=== PATIENT | female | born 1950 | race Caucasian/White ===

== ENCOUNTER → 2016-12-22 | Outpatient (CLI) | payer MEDICARE, BC ==
--- NOTE | 2016-12-24 10:08 | MM ---
Reason for exam: screening (asymptomatic). Last mammogram was performed 2 years and 4 months ago. History: Patient is postmenopausal and is nulliparous. Family history of breast cancer in paternal aunt. Benign cyst aspiration of the left breast, 2001. Took estrogen for 1 year 6 months. Took progesterone for 1 year 6 months. Physical Findings: A clinical breast exam by your physician is recommended on an annual basis and results should be correlated with mammographic findings. MG 3D Screening Mammo W/Cad Bilateral CC and MLO view(s) were taken. Prior study comparison: August 17, 2014, bilateral MG screening mammo w CAD. August 09, 2012, bilateral digital screening mammo w/CAD. April 07, 2011, bilateral digital screening mammo w/CAD. The breast tissue is heterogeneously dense. This may lower the sensitivity of mammography. No significant changes when compared with prior studies. ASSESSMENT: Negative, BI-RAD 1 RECOMMENDATION: Routine screening mammogram of both breasts in 1 year.
== END | disposition home or self-care (01) ==
LOC: RADMAMWWP 09:06
PROVIDERS: ATTEND Family Medicine
DX: Z12.31 Encounter for screening mammogram for malignant neoplasm of breast (principal)
CPT/HCPCS: 77063; G0202

== ENCOUNTER → 2017-01-20 | Outpatient (CLI) | payer MEDICARE, BC ==
--- NOTE | 2017-01-20 07:55 | US ---
EXAMINATION TYPE: US thyroid st tissue head/neck DATE OF EXAM: 01/20/2017 COMPARISON: NONE CLINICAL HISTORY: E04.1 Nontoxic single thyroid nodule. Pt states hypothyroid, on meds x 30+ yrs, pos sible nodule felt on left GLAND SIZE: Right Lobe: 2.4 x 0.9 x 1.0 cm Overall Parenchyma: heterogenous Left Lobe: 2.9 x 0.9 x 1.0 cm Overall Parenchyma: heterogeneous Isthmus Thickness: 0.2 cm Bilateral neck scanned, no evidence of lymphadenopathy. No evidence of nodules bilaterally with small , heterogeneous gland bilaterally IMPRESSION: Small heterogenous thyroid gland without discrete measurable nodule.
== END | disposition home or self-care (01) ==
LOC: RADUSWWP 07:27
PROVIDERS: ATTEND Family Medicine
DX: E07.89 Other specified disorders of thyroid (principal)
CPT/HCPCS: 76536

== ENCOUNTER → 2017-11-23 | Outpatient (CLI) | payer MEDICARE, BC ==
--- NOTE | 2017-11-23 15:56 | US ---
EXAMINATION TYPE: US transvaginal DATE OF EXAM: 11/23/2017 COMPARISON: NONE CLINICAL HISTORY: N95.0 Menorrhagia. Spotting, left pelvic pain TECHNIQUE: Transvaginal (TV). Date of LMP: unknown EXAM MEASUREMENTS: Uterus: 4.5 x 2.2 x 2.6 cm Endometrial Stripe: 0.2 cm Right Ovary: unable to visualize Left Ovary: 1.6 x 1.0 x 1.2 cm 1. Uterus: Anteverted Nabothian cyst = 0.9cm 2. Endometrium: appears wnl 3. Right Ovary: Obscured by overlying bowel gas 4. Left Ovary: limited evaluation due to overlying bowel content, possible anechoic area = 0.7 x 0.8 x 0.7cm 5. Bilateral Adnexa: wnl 6. Posterior cul-de-sac: wnl IMPRESSION: 1. No evidence of endometrial thickening. Endometrial atrophy is the endometrium measures 2 mm. Direc t visualization remains recommended for post menopausal bleeding. 2. 7 mm left ovarian follicle. For follicular changes/cysts of this size in a postmenopausal female a nnual surveillances recommended.
== END | disposition home or self-care (01) ==
LOC: RADUSWWP 15:00
PROVIDERS: ATTEND Obstetrics & Gynecology
DX: N85.8 Other specified noninflammatory disorders of uterus (principal)
CPT/HCPCS: 76830

== ENCOUNTER 2018-05-13 13:23 | Day surgery (SDC) | payer MEDICARE, BC ==
[2018-05-10 14:52] VITALS: BMI 28.0
[~2018-05-13 13:23] MED LIST: LACTATED RINGERS 1,000 ML IV SCH
[2018-05-13] MEDS ORDERED: LIDOCAINE 1% 20 ML VIAL (10MG/ML) FOR IV START INTRADERMA ONE (13:38)
[2018-05-13 13:45] VITALS: RESP 16; TEMP 98.5
[2018-05-13] MEDS ORDERED: LACTATED RINGERS 1,000 ML IV ONE (13:49)
[2018-05-13] MEDS ORDERED: PROPOFOL 10 MG/ML 20 ML VIAL IV ONE (13:54)
--- NOTE | 2018-05-13 14:01 | P.GSHP ---
History of Present Illness H&P Date: 05/13/18 Chief Complaint: colon cancer screening Patient today for colonoscopy. No bowel related complaints. She was having some abdominal pain recently. CAT scan showed some thickening of the transverse colon. Last colonoscopy 11 years ago. That study was normal. Denies family history. Past Medical History Past Medical History: Fibromyalgia, Hypertension, Osteoarthritis (OA), Thyroid Disorder Additional Past Medical History / Comment(s): migraines, "white coat high blood pressure", pain in pelvic area and bloating in stomach area, History of Any Multi-Drug Resistant Organisms: None Reported Past Surgical History: Orthopedic Surgery Additional Past Surgical History / Comment(s): petalla tendon transfer nolan legs , mortons neuroma rt foot, exploratory abdominal surgery Past Anesthesia/Blood Transfusion Reactions: Motion Sickness, Postoperative Nausea & Vomiting (PONV) Additional Past Anesthesia/Blood Transfusion Reaction / Comment(s): hard time waking up Smoking Status: Never smoker - Past Family History Brother(s) Family Medical History: Cancer Medications and Allergies Home Medications Medication Instructions Recorded Confirmed Type Calcium, Mg D3 1 tab PO DAILY 05/10/18 05/13/18 History Joint Health 2 tab PO DAILY 05/10/18 05/13/18 History Levothyroxine Sodium [Synthroid] 100 mcg PO DAILY 05/10/18 05/13/18 History Multivitamins, Thera [Multivitamin 1 tab PO DAILY 05/10/18 05/13/18 History (formulary)] [place]-3 Fatty Acids/Fish Oil [Fish 1 each PO DAILY 05/10/18 05/13/18 History Oil 1,000 mg Softgel] Turmeric Root Extract [Turmeric] 500 mg PO DAILY 05/10/18 05/13/18 History Vision Shield 2 tab PO DAILY 05/10/18 05/13/18 History Allergies Allergy/AdvReac Type Severity Reaction Status Date / Time Sulfa (Sulfonamide Allergy Rash/Hives, Verified 05/13/18 13:32 Antibiotics) throat closed, couldn't breath Surgical - Exam Vital Signs Temp Pulse Resp BP Pulse Ox 98.5 F 96 16 144/81 96 05/13/18 13:38 05/13/18 13:38 05/13/18 13:38 05/13/18 13:38 05/13/18 13:38 Physical exam: General: Well-developed, well-nourished HEENT: Normocephalic, sclerae nonicteric Abdomen: Nontender, nondistended Extremities: No edema Neuro: Alert and oriented Assessment and Plan (1) Colon cancer screening Narrative/Plan: Will proceed with colonoscopy Current Visit: Yes Status: Acute Code(s): Z12.11 - ENCOUNTER FOR SCREENING FOR MALIGNANT NEOPLASM OF COLON SNOMED Code(s): 081018591
--- NOTE | 2018-05-13 14:18 | P.PCN ---
Date of Procedure: 05/13/18 Procedure(s) Performed: PREOPERATIVE DIAGNOSIS: Colon cancer screening POSTOPERATIVE DIAGNOSIS: Sigmoid colon polyp, diverticulosis PROCEDURE: Colonoscopy with snare polypectomy ANESTHESIA: MAC SURGEON: Chapo Mg M.D. SPECIMENS: Sigmoid polyp ENDOSCOPIC PROCEDURE: The patient was placed on the endoscopy table in the left decubitus position. The Olympus colonoscope was inserted into the anus and passed under direct visualization to the region of the cecum. I could not intubate the base of the cecum. For that reason the appendiceal orifice was not visualized. This was despite multiple attempts and various methods. The scope was withdrawn from that point inspecting all surfaces carefully. There were no neoplastic inflammatory or polypoid lesions throughout the cecum, ascending, transverse, and descending colon. In the sigmoid colon a small polyp was identified and removed using the snare with cautery technique. There was mild left-sided diverticulosis. The remaining sigmoid and rectum appeared normal. Digital rectal examination was normal. The patient was taken to the recovery room in stable condition per anesthesia guidelines. RECOMMENDATIONS: Await biopsy results. Follow-up colonoscopy based on pathology findings.
[2018-05-13 14:30] VITALS: PULSE 87
[2018-05-13 14:49] VITALS: BP 163/76
== END 2018-05-13 15:00 | disposition home or self-care (01) ==
LOC: ORWHC2ENDO 13:23
PROVIDERS: ATTEND Surgery
DX: Z12.11 Encounter for screening for malignant neoplasm of colon (principal); D12.5 Benign neoplasm of sigmoid colon; K57.30 Diverticulosis of large intestine without perforation or abscess without bleeding; I10 Essential (primary) hypertension; M79.7 Fibromyalgia; M19.90 Unspecified osteoarthritis, unspecified site; E07.9 Disorder of thyroid, unspecified; Z79.890 Hormone replacement therapy; Z88.2 Allergy status to sulfonamides; G43.909 Migraine, unspecified, not intractable, without status migrainosus
CPT/HCPCS: 88305; 45385; J2704

== ENCOUNTER → 2018-07-14 | Outpatient (CLI) | payer MEDICARE, BC ==
[2018-07-14 06:44] LABS: Blood Urea Nitrogen 21 mg/dL (7-17)
--- NOTE | 2018-07-14 09:29 | CT ---
EXAMINATION TYPE: CT iac w con DATE OF EXAM: 07/14/2018 COMPARISON: None HISTORY: H92.02 Left Otalgia Automated exposure control for dose reduction was used. CONTRAST: CT scan of the IACs is performed with IV Contrast, patient injected with 100 mL of Isovue 300. FINDINGS: The external auditory canals are patent bilaterally. Mastoid air cells show no evidence of abnormal opacification bilaterally. The middle ear ossicles are symmetric and unremarkable. Small a mount of soft tissue measuring 2.1 mm left sided epi tympanum may reflect small cholesteatoma formati on. No evidence for osseous erosion. No right-sided soft tissue identified. The scutum is preserved b ilaterally. The cochlea and the semicircular canals are symmetric and unremarkable. Vestibular aque duct and internal carotid canal appear unremarkable. Temporomandibular joints are maintained bilater ally. IMPRESSION: 1.Small amount of soft tissue measuring 2.1 mm left sided epi tympanum may reflect small cholesteatom a formation. No evidence for osseous erosion.
== END | disposition home or self-care (01) ==
LOC: RADCTMAIN 06:13
PROVIDERS: ATTEND Otolaryngology
DX: H93.8X2 Other specified disorders of left ear (principal)
CPT/HCPCS: 82565; 84520; 70481; 36415; Q9967

== ENCOUNTER → 2018-10-04 | Outpatient (CLI) | payer MEDICARE, BC ==
--- NOTE | 2018-10-04 15:32 | US ---
EXAMINATION TYPE: US carotid duplex BILAT DATE OF EXAM: 10/04/2018 COMPARISON: NONE CLINICAL HISTORY: R55 Syncope and Collapse,I67.9 Cerebrovascular dz. EXAM MEASUREMENTS: RIGHT: Peak Systolic Velocity (PSV) cm/sec ----- Right CCA: 93.0 ----- Right ICA: 89.9 ----- Right ECA: 88.9 ICA/CCA ratio: 1.0 RIGHT: End Diastole cm/sec ----- Right CCA: 28.5 ----- Right ICA: 34.8 ----- Right ECA: 15.0 LEFT: Peak Systolic Velocity (PSV) cm/sec ----- Left CCA: 89.9 ----- Left ICA: 76.5 ----- Left ECA: 127.1 ICA/CCA ratio: 0.9 LEFT: End Diastole cm/sec ----- Left CCA: 21.6 ----- Left ICA: 27.6 ----- Left ECA: 18.8 VERTEBRALS (direction of flow): Right Vertebral: Antegrade Left Vertebral: Antegrade Rhythm: Normal No significant stenosis seen, mild to moderate bilateral plaque. IMPRESSION: Mild to moderate degree of grayscale atheromatous plaquing with no sonographically evide nt hemodynamically significant stenosis within either visualized carotid arterial system. Criteria for Assigning % of Stenosis / Diameter reduction (Estimation based on the indirect measurements of the internal carotid artery velocities (ICA PSV). 1. Normal (no stenosis)=ICA PSV < 125 cm/s: ratio < 2.0: ICA EDV<40 cm/s. 2. Less than 50% stenosis=ICA PSV < 125 cm/s: ratio < 2.0: ICA EDV<40 cm/s. 3. 50 to 69% stenosis=ICA PSV of 125 to 230 cm/s: ration 2.0 ? 4.0: ICA EDV 40-100 cm/s. 4. Greater than 70% stenosis to near occlusion= ICA PSV > 230 cm/s: ratio > 4.0: ICA EDV > 100 cm/s. 5. Near occlusion= ICA PSV velocities may be low or undetectable: variable ratio and ICA EDV. 6. Total occlusion=unable to detect flow.
== END | disposition home or self-care (01) ==
LOC: RADUSWWP 14:40
PROVIDERS: ATTEND Family Medicine
DX: I65.23 Occlusion and stenosis of bilateral carotid arteries (principal); I67.9 Cerebrovascular disease, unspecified
CPT/HCPCS: 93880

== ENCOUNTER → 2020-04-19 | Outpatient (CLI) | payer MEDICARE ==
--- NOTE | 2020-04-23 11:56 | MM ---
Reason for exam: screening (asymptomatic). Last mammogram was performed 3 years and 4 months ago. History: Patient is postmenopausal and is nulliparous. Family history of breast cancer in paternal aunt. Benign cyst aspiration of the left breast, 2001. Took estrogen for 1 year 6 months. Took progesterone for 1 year 6 months. Physical Findings: A clinical breast exam by your physician is recommended on an annual basis and results should be correlated with mammographic findings. MG 3D Screening Mammo W/Cad Bilateral CC and MLO view(s) were taken. Prior study comparison: December 22, 2016, bilateral MG 3d screening mammo w/cad. August 17, 2014, bilateral MG screening mammo w CAD. The breast tissue is heterogeneously dense. This may lower the sensitivity of mammography. No significant changes when compared with prior studies. ASSESSMENT: Benign, BI-RAD 2 RECOMMENDATION: Routine screening mammogram of both breasts in 1 year.
== END | disposition home or self-care (01) ==
LOC: RADMAMWWP 08:12
PROVIDERS: ATTEND Family Medicine
DX: Z12.31 Encounter for screening mammogram for malignant neoplasm of breast (principal)
CPT/HCPCS: 77063; 77067

== ENCOUNTER → 2020-05-10 | Outpatient (CLI) | payer MEDICARE ==
--- NOTE | 2020-05-10 10:27 | USB ---
Reason for exam: additional evaluation requested from prior study. History: Patient is postmenopausal and is nulliparous. Family history of breast cancer in paternal aunt. Benign cyst aspiration of the left breast, 2001. Took estrogen for 1 year 6 months. Took progesterone for 1 year 6 months. US Breast RT Right complete breast ultrasound includes all four quadrants, the retroareolar region and axilla. Finding demonstrates ductal ectasia at 4 o'clock and a 1.1 x 1.5 x 0.9cm oval lymph node at the axilla. These results were verbally communicated with the patient and result sheet given to the patient on 05/10/20. ASSESSMENT: Probably benign, BI-RAD 3 RECOMMENDATION: Ultrasound of the right breast in 6 months. Manage on a clinical basis with regard to pain.
== END | disposition home or self-care (01) ==
LOC: RADUSWWP 09:20
PROVIDERS: ATTEND Family Medicine
DX: N64.4 Mastodynia (principal); M79.621 Pain in right upper arm

== ENCOUNTER → 2020-10-23 | Outpatient (CLI) | payer MEDICARE ==
--- NOTE | 2020-10-23 09:59 | USB ---
Reason for exam: follow-up at short interval from prior study. History: Patient is postmenopausal and is nulliparous. Family history of breast cancer in paternal aunt. Benign cyst aspiration of the left breast, 2001. Took estrogen for 1 year 6 months. Took progesterone for 1 year 6 months. Physical Findings: Nurse did not find any significant physical abnormalities on exam. US Breast RT Right complete breast ultrasound includes all four quadrants, the retroareolar region and axilla. Finding demonstrates no cystic or solid lesion seen. No sonographic finding. These results were verbally communicated with the patient and result sheet given to the patient on 10/23/20. ASSESSMENT: Benign, BI-RAD 2 RECOMMENDATION: Return to routine screening mammogram schedule for both breasts. Back on schedule.
== END | disposition home or self-care (01) ==
LOC: RADUSWWP 08:16
PROVIDERS: ATTEND Family Medicine
DX: R92.8 Other abnormal and inconclusive findings on diagnostic imaging of breast (principal)

== ENCOUNTER → 2021-06-05 | Outpatient (CLI) | payer MEDICARE ==
--- NOTE | 2021-06-09 10:38 | MM ---
Reason for exam: screening (asymptomatic). Last mammogram was performed 1 year and 2 months ago. History: Patient is postmenopausal and is nulliparous. Family history of breast cancer in paternal aunt at age 70. Benign cyst aspiration of the left breast, 2001. Took estrogen for 1 year 6 months. Took progesterone for 1 year 6 months. Physical Findings: A clinical breast exam by your physician is recommended on an annual basis and results should be correlated with mammographic findings. MG 3D Screening Mammo W/Cad Bilateral CC and MLO view(s) were taken. Prior study comparison: April 19, 2020, bilateral MG 3d screening mammo w/cad. December 22, 2016, bilateral MG 3d screening mammo w/cad. The breast tissue is heterogeneously dense. This may lower the sensitivity of mammography. A few regional grouped calcifications left upper outer quadrant are new, further evaluation recommended. ASSESSMENT: Incomplete: need additional imaging evaluation, BI-RAD 0 RECOMMENDATION: Special view mammogram of the left breast. (magnification) [facility] will attempt to contact patient to return for supplemental views.
== END | disposition home or self-care (01) ==
LOC: RADMAMWWP 09:05
PROVIDERS: ATTEND Family Medicine
DX: Z12.31 Encounter for screening mammogram for malignant neoplasm of breast (principal); Z78.0 Asymptomatic menopausal state; Z80.3 Family history of malignant neoplasm of breast
CPT/HCPCS: 77063; 77067

== ENCOUNTER → 2021-06-09 | Outpatient (CLI) | payer MEDICARE ==
--- NOTE | 2021-06-09 15:21 | BD ---
EXAMINATION TYPE: Axial Bone Density DATE OF EXAM: 06/09/2021 COMPARISON: 09.16.2012 CLINICAL HISTORY: 70 YR OLD FEMALE.....ICD-10 CODE: M85.80 BD DISORDER Height: 65.2 Weight: 181 FRAX RISK QUESTIONS: Secondary Osteoporosis: YES 3. Menopause before 45: AT 46 RISK FACTORS HISTORY OF: History of Wrist Fracture: RT WRIST AN ADULT, Family History of Osteoporosis: UNKNOWN Diet low in dairy products/other sources of calcium: YES Postmenopausal woman: YES, AT AGE 46 YRS OLD Take estrogen and/or progesterone medications: YES, FOR ABOUT 5 YRS , NONE NOW Hyperparathyroidism: NO Adrenal Insufficiency: NO MEDICATIONS: Thyroid Medications: YES, SYNTHROID, FOR ABOUT 40 YRS Osteoporosis Medications: FOSAMAX, ACTONEL, EVISTA....ALL IN THE PAST, NONE NOW Additional Medications: VIT D, STOPPED CALCIUM ABOUT 6 MOS AGO, OSTEOARTHRITIS Additional History: OSTEOARTHRITIS, HYPERCALCEMIA, EXAM MEASUREMENTS: Bone mineral densitometry was performed using the Vuze System. Bone mineral density as measured about the Lumbar spine is: ----- L1-L4(G/cm2): 0.954 T Score Values are as follows: ----- L1: -1.5 ----- L2: -2.3 ----- L3: -2.1 ----- L4: -1.7 ----- L1-L4: -1.9 Bone mineral density has: Decreased -1.6% since study of: 04.05.2015 Bone mineral density about the R hip (g/cm2): 0.756 Bone mineral density about the L hip (g/cm2): 0.772 T Score values are as follows: -----R Neck: -1.7 -----L Neck: -1.2 -----R Total: -2.0 -----L Total: -1.9 Bone mineral density has: Decreased -6.6% since study of: 04.05.2015 FRAX%s: THERE IS A 16.2% CHANCE FOR A MAJOR OSTEOPOROTIC FX AND A 2.5% FOR HIP.....PROBABILITY FO R FX IN 10 YRS TIME IMPRESSION: Osteopenia (T Score between -2.5 and -1). There is slightly increased risk of fracture and the patient may be considered for treatment. Re-Screen 2-5 years. NOTE: T-SCORE=SD OF THE YOUNG ADULT MEAN.
== END | disposition home or self-care (01) ==
LOC: RADBDWWP 07:10
PROVIDERS: ATTEND Family Medicine
DX: M85.80 Other specified disorders of bone density and structure, unspecified site (principal)
CPT/HCPCS: 77080

== ENCOUNTER → 2022-06-09 | Outpatient (CLI) | payer MEDICARE ==
--- NOTE | 2022-06-10 12:17 | MM ---
Reason for Exam: Screening (asymptomatic). Last screening mammogram was performed 12 month(s) ago. Patient History: Menarche at age 12. Patient has no children. Postmenopausal. Estrogen for 3 years, 6 months. Progesterone for 3 years, 6 months. 2001, Benign Cyst Aspiration on the left side. Paternal aunt had breast cancer, age 70. Risk Values: Flaquita 5 year model risk: 2.1%. NCI Lifetime model risk: 6.1%. Prior Study Comparison: 04/19/2020 Bilateral Screening Mammogram, [facility]. 06/05/2021 Bilateral Screening Mammogram, [facility]. 06/10/2021 Left Diagnostic Mammogram, [facility]. Tissue Density: The breast tissue is heterogeneously dense. This may lower the sensitivity of mammography. Findings: Analyzed By CAD. There is no suspicious group of microcalcifications or new suspicious mass in either breast. Overall Assessment: Negative, BI-RAD 1 Management: Screening Mammogram of both breasts in 1 year. A clinical breast exam by your physician is recommended on an annual basis and results should be correlated with mammographic findings. [facility] will attempt to contact patient to return for supplemental views and ultrasound if indicated. Electronically signed and approved by: Milan Corona DO
== END | disposition home or self-care (01) ==
LOC: RADMAMWWP 09:19
PROVIDERS: ATTEND Family Medicine
DX: Z12.31 Encounter for screening mammogram for malignant neoplasm of breast (principal); Z78.0 Asymptomatic menopausal state; Z80.3 Family history of malignant neoplasm of breast
CPT/HCPCS: 77063; 77067

== ENCOUNTER → 2023-04-30 | Outpatient (CLI) | payer MEDICARE ==
--- NOTE | 2023-04-30 11:59 | PE ---
EXAMINATION TYPE: PET CT fusion skull to thigh DATE OF EXAM: 04/30/2023 COMPARISON: CT chest 02/04/2023 Prior PET/CT: None at this location HISTORY: Solitary pulmonary nodule TECHNIQUE: Following the intravenous administration of 11.0 mCi of F-18 FDG, whole body images are p erformed from the skull base to the midthigh. Images are reviewed on the computer in the coronal, ax ial, and sagittal planes. Reconstructed rotating images are created on independent workstation and r eviewed on the computer. A localization and attenuation correction CT is performed in conjunction w ith the PET scan. DLP: 651.90 mGycm SCAN: Initial Blood glucose: 126 mg/dL Average Mediastinum SUV: 1.9 Average Liver SUV: 2.71 FINDINGS: NECK: No abnormal uptake THORAX: No abnormal uptake ABDOMEN: No abnormal uptake PELVIS: No abnormal uptake OSSEOUS STRUCTURES: No abnormal uptake LOCALIZATION CT: Some groundglass opacity may be in the anterior left upper lung field. Short-term fo llow-up CT in 6 months is recommended. Image 69. Calcifications in the posterior right upper lung field. Image 87. No significant radiotracer uptake. No suspicious uptake within the lung pop are mediastinal. COMPARISON: No significant interval change evident. IMPRESSION: 1. No suspicious radiotracer accumulation to suggest neoplastic process. 2. Localization CT has some mild increased lung markings anterior left upper lung field. Short-term f ollow-up CT chest in 6 months is recommended for re evaluation.
== END | disposition home or self-care (01) ==
LOC: RADPETMAIN 09:40
PROVIDERS: ATTEND Internal Medicine Critical Care Medicine
DX: R91.8 Other nonspecific abnormal finding of lung field (principal)
CPT/HCPCS: 78815; A9552

== ENCOUNTER → 2024-07-17 | Outpatient (CLI) | payer MEDICARE ==
--- NOTE | 2024-07-17 08:54 | MM ---
Reason for Exam: Screening (asymptomatic). Last mammogram was performed 2 year(s) and 1 month(s) ago. Patient History: Menarche at age 12. Patient has no children. Postmenopausal. Estrogen for 3 years, 6 months. Progesterone for 3 years, 6 months. 2001, Benign Cyst Aspiration on the left side. Paternal aunt had breast cancer, age 70. Risk Values: Flaquita 5 year model risk: 2.1%. NCI Lifetime model risk: 5.6%. Prior Study Comparison: 06/05/2021 Bilateral Screening Mammogram, [facility]. 06/10/2021 Left Diagnostic Mammogram, [facility]. 06/09/2022 Bilateral MG 3D screening mammo w/cad, [facility]. Tissue Density: The breasts are heterogeneously dense, which may obscure small masses. Findings: Analyzed By CAD. Right breast: There is no suspicious group of microcalcifications or new suspicious mass. Benign-appearing calcifications right breast. Left breast: There is no suspicious group of microcalcifications or new suspicious mass. Benign-appearing calcifications left breast. Overall Assessment: Benign, BI-RAD 2 Management: Screening Mammogram of both breasts in [address] [facility] will attempt to contact patient to return for supplemental views and ultrasound if indicated. Patient should continue monthly self-breast exams. A clinical breast exam by your physician is recommended on an annual basis. This exam should not preclude additional follow-up of suspicious palpable abnormalities. Note on Flaquita scores and lifetime risk: 1. A Flaquita score greater than 3% is considered moderate risk. If this is the case, consider specialist referral to assess eligibility for a risk reducing agent. 2. If overall lifetime risk for the development of breast cancer is 20% or higher, the patient may qualify for future screening with alternating mammogram and breast MRI. [facility], , 07/17/2024 8:46 AM. Electronically signed and approved by: Milan Corona DO
== END | disposition home or self-care (01) ==
LOC: RADMAMWWP 08:13
PROVIDERS: ATTEND Family Medicine
DX: Z12.31 Encounter for screening mammogram for malignant neoplasm of breast (principal); R92.333 Mammographic heterogeneous density, bilateral breasts; Z78.0 Asymptomatic menopausal state; Z80.3 Family history of malignant neoplasm of breast
CPT/HCPCS: 77063; 77067